=== PATIENT | male | born 1990 | race Caucasian/White ===

== ENCOUNTER 2023-07-03 08:10 | Outpatient (CLI) | payer BC, SELFPAY | END 2023-07-03 08:11 | disposition home or self-care (01) | PROVIDERS: PCP Family Medicine; Visit Provider Nurse Practitioner Family | DX: Z00.00 Encounter for general adult medical examination without abnormal findings (principal); L65.9 Nonscarring hair loss, unspecified; Z13.6 Encounter for screening for cardiovascular disorders | CPT/HCPCS: 80053; 80061 ==